=== PATIENT | male | born 1935 | race African-American/Black ===

== ENCOUNTER 2019-03-12 11:03 | Inpatient (IN) ==
[2019-03-12 13:50] LABS: Basophils % 0.5 % (0.0-0.8); Eosinophils % 0.4 % (0.00-10.9); Hematocrit 42.2 VOL% (42.0-52.0); Hemoglobin 13.5 GM/DL (14.0-18.0); Immature Granulocytes % 0.4 %; Immature Granulocytes Absolute 0.02 #; Lymphocytes # 1.7 10*3/uL (1.4-4.0); Lymphocytes % 30.1 % (21.2-54.2); Mean Corpuscular Volume 75.1 FL (87-102); Monocytes % 13.2 % (1.7-12.7); Neutrophils % 55.4 % (38.7-73.9); Platelet Count 163 T/CUMM (130-400); Red Blood Count 5.62 MC/CUMM (3.8-5.5); Red Cell Distribution Width 15.8 % (9.3-17.3); White Blood Count 5.7 T/CUMM (4-12)
[2019-03-12 14:53] LABS: Albumin 3.7 G/DL (3.4-5.0); Bilirubin,Total 2.6 MG/DL (0.2-1.0); Calcium 9.6 MG/DL (8.5-10.1); Osmolality,Calculated 284.1 MOS/KG (273-304); Total Protein 8.2 G/DL (6.4-8.3)
[2019-03-12] MEDS ORDERED: diphenhydrAMINE CAP 25 MG CAPSULE PO PRN (16:04)
[2019-03-12] MEDS ORDERED: PROMETHAZINE 25 MG/1 ML VIAL IM PRN (16:04)
[2019-03-12] MEDS ORDERED: PROMETHAZINE 25 MG TABLET PO PRN (16:04)
[2019-03-12] MEDS ORDERED: ACETAMINOPHEN 325 MG TABLET PO PRN (16:04)
[2019-03-12] MEDS ORDERED: FUROSEMIDE 40 MG/4 ML VIAL IV STA (16:07)
[2019-03-12] MEDS ORDERED: ENOXAPARIN 40 MG/0.4 ML SYRINGE SUBCUT SCH (16:30)
[2019-03-12 17:36] LABS: Target Cells 2+
[2019-03-12 17:37] LABS: Anisocytosis 1+; Hypochromasia 2+; Microcytosis 2+; Platelet Estimate Normal; Polychromasia Slight
[2019-03-12] MEDS: POTASSIUM CHLORIDE 20 MEQ TABLET PO SCH ×2 (18:25→21:18)
[2019-03-12] MEDS: LISINOPRIL 10 MG TABLET PO SCH (21:17)
[2019-03-12] MEDS: DOCUSATE SODIUM 100 MG CAPSULE PO SCH (21:18)
[2019-03-12] MEDS: FUROSEMIDE INJ 100 MG in SODIUM CHLORIDE 0.9% 90 ML IV SCH (22:55)
[2019-03-13] MEDS: POTASSIUM CHLORIDE 20 MEQ TABLET PO SCH (00:33)
[2019-03-13 05:36] LABS: Basophils # 0.1 10*3/uL (0.0-0.2); Basophils % 1.1 % (0.0-0.8); Eosinophils # 0.1 10*3/uL (0.0-0.87); Eosinophils % 0.8 % (0.00-10.9); Hematocrit 41.5 VOL% (42.0-52.0); Hemoglobin 13.5 GM/DL (14.0-18.0); Immature Granulocytes % 0.2 %; Immature Granulocytes Absolute 0.01 #; Lymphocytes # 2.8 10*3/uL (1.4-4.0); Lymphocytes % 41.5 % (21.2-54.2); Mean Corpuscular HGB Conc 32.5 GM/DL (32-36); Mean Corpuscular Volume 73.7 FL (87-102); Monocytes % 15.7 % (1.7-12.7); Neutrophils % 40.7 % (38.7-73.9); Platelet Count 165 T/CUMM (130-400); Red Blood Count 5.63 MC/CUMM (3.8-5.5); Red Cell Distribution Width 15.9 % (9.3-17.3); White Blood Count 6.6 T/CUMM (4-12)
[2019-03-13 05:47] LABS: Eosinophils 1 % (0-10); Lymphocytes 47 % (20-55); Segmented Neutrophils 42 % (50-85); Total Cells Counted 100
[2019-03-13 05:48] LABS: Hypochromasia 2+; Microcytosis 1+; Ovalocytes Slight; Platelet Estimate Adequate; Target Cells Few
[2019-03-13 06:11] LABS: Albumin 3.6 G/DL (3.4-5.0); Bilirubin,Total 2.3 MG/DL (0.2-1.0); Calcium 10.1 MG/DL (8.5-10.1); Osmolality,Calculated 280.4 MOS/KG (273-304); Risk Ratio 5.35; Thyroid Stimulating Hormone 1.82 uIU/ml (0.358-3.74); Total Protein 7.9 G/DL (6.4-8.3); VLDL CHOLESTEROL 30.2 MG/DL
[2019-03-13 08:34] LABS: INR 1.3; PT Patient Result 13.6 SECS (9.6-12.2)
[2019-03-13] MEDS ORDERED: carvediloL 12.5 MG TABLET PO SCH (09:00)
[2019-03-13] MEDS ORDERED: ASPIRIN EC 325 MG TABLET PO SCH (09:00)
[2019-03-13] MEDS: LISINOPRIL 10 MG TABLET PO SCH ×2 (10:21→21:20)
[2019-03-13] MEDS: BICALUTAMIDE 50 MG TABLET PO SCH (10:21)
[2019-03-13] MEDS: DOCUSATE SODIUM 100 MG CAPSULE PO SCH ×2 (10:21→21:19)
[2019-03-13] MEDS: PANTOPRAZOLE 40 MG TABLET PO SCH (10:21)
[2019-03-13] MEDS: BISACODYL 5 MG TABLET PO SCH (10:21)
[2019-03-13] MEDS: metOLazone 2.5 MG TABLET PO SCH (10:22)
[2019-03-13] MEDS: carvediloL 12.5 MG TABLET PO SCH ×2 (10:26→21:20)
[2019-03-13 10:54] LABS: Lymphocytes,Pleural Fluid 47 %; Monocytes,Pleural Fluid 3 %; Neutrophils,Pleural Fluid 50 %
[2019-03-13 10:56] LABS: RBC,Pleural Fluid 50 T/CUMM
[2019-03-13 12:29] LABS: Total Protein,Body Fluid 2.7 G/DL
[2019-03-13] MEDS: FUROSEMIDE INJ 100 MG in SODIUM CHLORIDE 0.9% 90 ML IV SCH (18:31)
[2019-03-13] MEDS: ROSUVASTATIN 20 MG TABLET PO SCH (21:19)
[2019-03-14 05:36] LABS: Basophils % 0.7 % (0.0-0.8); Eosinophils # 0.1 10*3/uL (0.0-0.87); Hematocrit 39.2 VOL% (42.0-52.0); Hemoglobin 12.8 GM/DL (14.0-18.0); Immature Granulocytes % 0.2 %; Immature Granulocytes Absolute 0.01 #; Lymphocytes # 2.1 10*3/uL (1.4-4.0); Lymphocytes % 34.4 % (21.2-54.2); Mean Corpuscular HGB Conc 32.7 GM/DL (32-36); Mean Corpuscular Volume 73.1 FL (87-102); Monocytes % 12.3 % (1.7-12.7); Neutrophils % 51.4 % (38.7-73.9); Platelet Count 158 T/CUMM (130-400); Red Blood Count 5.36 MC/CUMM (3.8-5.5)
[2019-03-14 05:54] LABS: Calcium 9.6 MG/DL (8.5-10.1); Microcytosis 1+; Osmolality,Calculated 283.3 MOS/KG (273-304); Target Cells 1+
[2019-03-14 05:55] LABS: Hypochromasia 1+; Ovalocytes Slight; Platelet Estimate Adequate; Tear Drop Cells Slight
[2019-03-14] MEDS: metOLazone 2.5 MG TABLET PO SCH (08:51)
[2019-03-14] MEDS: PANTOPRAZOLE 40 MG TABLET PO SCH (08:51)
[2019-03-14] MEDS ORDERED: MAGNESIUM SULF RIDER 2 GM in PREMIX 1 EACH IV PRN (08:51)
[2019-03-14] MEDS: carvediloL 12.5 MG TABLET PO SCH ×2 (08:51→20:58)
[2019-03-14] MEDS ORDERED: MAGNESIUM SULF RIDER 4 GM in PREMIX 1 EACH IV PRN (08:51)
[2019-03-14] MEDS: DOCUSATE SODIUM 100 MG CAPSULE PO SCH ×2 (08:51→21:20)
[2019-03-14] MEDS: BICALUTAMIDE 50 MG TABLET PO SCH (09:01)
[2019-03-14] MEDS: ASPIRIN EC 81 MG TABLET PO SCH (09:03)
[2019-03-14] MEDS: BISACODYL 5 MG TABLET PO SCH (09:03)
[2019-03-14] MEDS: POTASSIUM CHLORIDE 20 MEQ TABLET PO PRN ×3 (11:04→20:59)
[2019-03-14] MEDS: FUROSEMIDE 40 MG/4 ML VIAL IV SCH ×2 (12:07→17:25)
[2019-03-14] MEDS: ROSUVASTATIN 20 MG TABLET PO SCH (20:58)
[2019-03-14] MEDS: SPIRONOLACTONE 25 MG TABLET PO SCH (20:58)
[2019-03-15 04:52] LABS: Basophils % 0.3 % (0.0-0.8); Eosinophils % 0.7 % (0.00-10.9); Hematocrit 37.7 VOL% (42.0-52.0); Hemoglobin 12.6 GM/DL (14.0-18.0); Immature Granulocytes % 0.2 %; Immature Granulocytes Absolute 0.01 #; Lymphocytes % 32.8 % (21.2-54.2); Mean Corpuscular HGB Conc 33.4 GM/DL (32-36); Mean Corpuscular Volume 72.4 FL (87-102); Monocytes % 14.1 % (1.7-12.7); Neutrophils % 51.9 % (38.7-73.9); Platelet Count 150 T/CUMM (130-400); Red Blood Count 5.21 MC/CUMM (3.8-5.5)
[2019-03-15 05:09] LABS: Calcium 8.9 MG/DL (8.5-10.1)
[2019-03-15 05:12] LABS: Hypochromasia 1+; Platelet Estimate Adequate
[2019-03-15 05:13] LABS: Microcytosis Slight
[2019-03-15] MEDS: carvediloL 12.5 MG TABLET PO SCH (09:39)
[2019-03-15] MEDS: ASPIRIN EC 81 MG TABLET PO SCH (09:39)
[2019-03-15] MEDS: SPIRONOLACTONE 25 MG TABLET PO SCH (09:39)
[2019-03-15] MEDS: metOLazone 2.5 MG TABLET PO SCH (09:39)
[2019-03-15] MEDS: DOCUSATE SODIUM 100 MG CAPSULE PO SCH (09:39)
[2019-03-15] MEDS: BISACODYL 5 MG TABLET PO SCH (09:39)
[2019-03-15] MEDS: BICALUTAMIDE 50 MG TABLET PO SCH (09:39)
[2019-03-15] MEDS: PANTOPRAZOLE 40 MG TABLET PO SCH (09:39)
[2019-03-15 11:40] VITALS: BP 96/62
[2019-03-15] MEDS ORDERED: FUROSEMIDE 40 MG TABLET PO SCH (16:00)
[2019-03-16] MEDS ORDERED: SACUBITRIL/VALSARTAN 49-51 MG TABLET PO SCH (21:00)
== END 2019-03-15 17:00 | disposition home health service (06) | DRG 292 ==
LOC: N.ED 11:03 → N.EDINP 11:03 → N.5E 16:35 → SUATTDRO 03-13 09:40 → N.TELEN 03-13 15:32
PROVIDERS: ADMIT Internal Medicine; ATTEND Internal Medicine Cardiovascular Disease
PROC: IRTHORA (2019-03-13 09:12)